=== PATIENT | male | born 1980 | race Caucasian/White ===

== ENCOUNTER 2023-06-01 15:31 | Outpatient (CLI) | payer OTHER ==
--- NOTE | 2023-06-01 15:58 | Sleep Patient Instructions ---
Sleep Center Visit Summary - Patient Visit Information Reason for Visit: Initial consult for evaluation of sleep disordered breathing and other sleep issues. - Patient Instructions Instructions Attached: Sleep Study, Sleep Clinic Visit, Sleep Study Home Monitor Additional Instructions: You will be completing a sleep study, either an in-lab polysomnography (PSG) or home sleep study (HST). You will follow-up in the sleep care office after the sleep study is completed to hear the results and talk about therapy, if needed. You will be called by our office staff to schedule this appointment, but you may contact us with any questions. - Clinic Information Contact: [facility] [address] [place] [address] [email or web address] T: [phone]
--- NOTE | 2023-06-01 16:07 | SLEEP CARE CONSULTATION ---
Information from patient questionnaire entered by Vj Ray. I have reviewed and concur with the information entered by Vj Ray. This document represents the service I personally performed and the decisions made by me, Ana Lipscomb ARNP. History of Present Illness Service Date and Time: 06/01/2023 1531 Reason for Visit: New patient Chief Complaint: reports: Unrefreshed sleep, Snoring, Excessive daytime sleepiness, Observed pauses in breathing, Fatigue, Frequent awakenings at night Date of Onset: 3YRS Usual bedtime: 10PM Time it takes to fall asleep: 1HR Snores at night: Yes Observed to quit breathing while asleep: Yes Sleeps alone due to snoring: No Number of times waking at night: 4-5 Reasons for waking at night: reports: Gasping for air (not recently), Other (UNKNOWN). denies: Choking, Snoring Toss, Turn, or Twitch while sleeping: Yes Recalls having dreams: No Usually gets out of bed at: 5AM; weekends 06-0700 Feels refreshed in the morning: No Morning headache: Yes (daily, last couple hours, they are constant during day sometimes) Sleepy or fatigued during the day: Yes Ever fallen asleep while driving: No Takes day naps: Yes (not often; 1-2 x a week for 30 mins) Dreams during day naps: No Prior sleep studies: No Additional HPI information: I had the pleasure of seeing MARGARITA HOLLIDAY today regarding the possibility of him having a sleep disorder. His current complaints are snoring, unrefreshed sleep, frequent night awakenings, excessive daytime sleepiness and observed pauses in breathing. He does not feel he gets enough sleep. He is tired through out the day. He takes an hour to fall asleep and will wake up 4-5 times through night for no apparent reason. 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 He does not wake up feeling rested. He has had times he woke up gasping for air but since he has lost about 30 pounds in the last year this has not happened. He does wake up daily with headaches. Some will last only 2 hours but other will be there all day. He states it is like a dull ache around his forehead. He states about 4-5 years ago he did a home sleep study that he wore on his wrist but he never heard anything back about the results. - Parasomnia Symptoms Ever been unable to move upon waking from sleep: No Walks in sleep: No Talks in sleep: No Ever acted out dreams in sleep: No Ever felt weak in the knees when startled or emotional: No Bothered by creepy, crawly, restless sensations in legs: No Problems with memory or concentration: Yes (concentration mostly) Subjective Initial Munden Sleepiness Scale score: 18 (06/01/23) Past Medical History Past Medical History: reports: Anxiety Social History The patient's occupation is a AM. Patient is and lives in [place]. Have you smoked in the past 12 months: No Years of smokin Quit date: 2017 Alcohol use: Yes Alcohol amount and frequency: 6 BEERS 1 WEEK Caffeine use: Yes Caffeine amount and frequency: 3 COFFEE EVERY DAY Family History Family history of sleep disordered breathing: Yes Family Hx Sleep Apnea: Mother: Snoring, Sleep apnea - Untreated, Father: Snoring, Sleep apnea - Untreated, Grandparent: Snoring, Sleep apnea - Untreated Allergies and Home Medications Known drug allergies: Yes (PEN, AMX) Drug allergies reviewed: Yes Home medication list reviewed: Yes (no daily medications) Review of Systems Weight loss over past 5 years: 30 Cardiovascular: denies: high blood pressure Gastrointestinal: denies: heartburn Neurological: reports: headaches. denies: head trauma Psychiatric: reports: anxiety Ear/Nose/Throat: reports: wisdom teeth removed. denies: injury to nose, tonsillectomy Musculoskeletal: reports: joint pain, back pain Immunologic: denies: allergies to food or environment Physical Exam Vital signs obtained and entered by: VJ Quinn MA Blood Pressure: 126/78 (LEFT ARM) Cuff size: regular Heart Rate: 58 O2 Saturation: 97 Height: 6 ft 1 in Weight: 200 lb 9.6 oz (with boots on) Body Mass Index: 26.4 BMI Classification: Overweight Neck circumference: 15.25 Mouth and throat: narrow oropharynx Soft palate: normal Hard palate: normal Uvula: normal Uvula visualization: 50% Mallampati Class II Tongue: enlarged in size with teeth zabala on lateral edges Tonsils: small Neck: normal w/o lymphadenopathy or thyromegaly Heart: regular rate and rhythm Lungs: clear bilaterally Impression and Plan 1. Suspected Obstructive Sleep Apnea-Hypopnea Syndrome, as suggested by a history of loud and irregular snoring, observed cessation of breath while a sleep, gasping or choking in sleep, morning headache, frequent awakening during the night, unrefreshed sleep, cognitive impairment, and excessive daytime sleepiness. Narrow oropharynx and obesity are common predisposing factors for obstructive sleep apnea-hypopnea syndrome. I recommend proceeding to polysomnography to confirm the diagnosis and to assess severity. If the patient has significant sleep disordered breathing, a manual CPAP titration study will also be performed to find the optimal treatment pressure. I informed the patient of what the sleep studies involve and after some discussion, obtained agreement to proceed. The pathophysiology of obstructive sleep apnea-hypopnea syndrome was discussed with the patient and health risks of cardiovascular and cerebrovascular disease if not treated. Risks of drowsy driving discussed in detail and patient advised to avoid long distance driving and to box puller at the first sign of drowsiness. Patient agreed to plan. * Schedule polysomnography +- manual CPAP titration study and return in 1-2 weeks after the study to discuss result and initiate therapy. * Avoid long distance driving or driving when feeling sleepy. * Avoid alcohol, sedative and muscle relaxant around bedtime. * Attempt to lose weight. * Review instructions provided by trained office staff on how to prepare for the sleep study. * Return for follow-up after sleep study completed. Counseling Topics: Weight loss health impact Visit Type: In Office Time Spent with Patient (minutes): 30 Provider Statement: I spent 100% of the Face to Face Visit with the patient with greater than 50% spent counseling the patient and coordination of care.
[2023-06-01 16:13] VITALS: BP 126/78
== END 2023-06-01 15:32 | disposition home or self-care (01) ==
LOC: SC 15:31
PROVIDERS: ATTEND Nurse Practitioner Family
DX: R06.83 Snoring (principal); G47.8 Other sleep disorders; R06.81 Apnea, not elsewhere classified; R51.9 Headache, unspecified; G47.10 Hypersomnia, unspecified; R53.83 Other fatigue; E66.3 Overweight; Z68.26 Body mass index [BMI] 26.0-26.9, adult; Z87.891 Personal history of nicotine dependence
CPT/HCPCS: 99203; 99212

== ENCOUNTER 2024-08-05 12:37 | Outpatient (CLI) | payer OTHER ==
--- NOTE | 2024-08-05 15:48 | MRI Report ---
Arthrogram Shoulder RT CLINICAL HISTORY: 43 years of age, Male, R SHOULDER JOINT DISORDER. Comparison: No priors available Technique: After the administration of 12 mL of dilute intra-articular Gadolinium contrast, oblique c oronal T1 and T2 spin echo with fat saturation, oblique sagittal T1 spin echo with and without fat sa turation, oblique sagittal T2 fast spin echo with fat saturation, axial T1 spin echo with fat saturat ion through the shoulder. Findings: Osseous acromial outlet: Moderate degenerative changes of the acromioclavicular joint. Type I acromio n. No os acromiale. No significant subacromial/subdeltoid bursitis. Rotator cuff muscles and tendons: Mild tendinosis of the supraspinatus and infraspinatus. Low-grade a rticular sided tear at the footprint of the junction of the supraspinatus and infraspinatus (6:10). T he teres minor is unremarkable. The subscapularis is intact. Muscles are intact without evidence of atrophy or edema. Labral and capsular structures: Superior labral tear. Biceps tendon and anchor: Mild tendinosis of the intra-articular biceps tendon. The intra-articular b iceps tendon is unremarkable. Osseous and cartilaginous structures: Mild subchondral cystic changes at the greater tuberosity, reac tive. No focal chondral defect of the glenohumeral articulation. Miscellaneous: No intra-articular bodies. The remaining muscles are normal in bulk without evidence o f atrophy or edema. IMPRESSION: 1.Moderate degenerative changes of the acromioclavicular joint. 2.Low-grade articular sided tear at the footprint of the junction of supraspinatus and infraspinatus. 3.Superior labral tear. Reviewed by: Sarai Mendez MD on 08/05/2024 3:46 PM PDT Approved by: Sarai Mendez MD on 08/05/2024 3:46 PM PDT Station ID: [id number]
--- NOTE | 2024-08-05 15:57 | MRI Report ---
Knee RT WO CLINICAL INFORMATION: 43 years of age, Male, RIGHT KNEE PAIN. COMPARISON: None Technique: Multisequence, multiplanar MRI of the right knee was performed without intravenous contras t. FINDINGS: Menisci: In the medial meniscus, there is a undersurface flap tear of the posterior horn, and a verti melo tear of the meniscus body. There is mild extrusion of the medial meniscus body with a meniscus fl ap extending into the inferior gutter. The lateral meniscus is unremarkable. Cruciate ligaments: The anterior and posterior cruciate ligaments are intact. MCL/LCL: The MCL is unremarkable. The biceps femoris tendon is unremarkable. The fibular collateral ligament is unremarkable. The iliotibial band is intact. The popliteus muscle and tendon also appear intact. Extensor mechanism: The quadricep tendon is unremarkable. The patella tendon is unremarkable. Patellofemoral joint: Alignment within the patellofemoral joint is normal. The patellofemoral ligame nts are intact. Cartilage and bone marrow signal within the patella and femoral trochlea are normal. Cartilage and bone: The cartilage of the medial and the lateral compartments is grossly well maintain ed. No acute fracture. Miscellaneous: No significant joint effusion. No popliteal cyst. No intra-articular bodies are ident ified. Normal muscle signal intensity and morphology. No vascular anomaly. Mild infrapatellar subcutaneous edema. IMPRESSION: 1.Tear of the medial meniscus with a meniscus flap. 2.No significant chondrosis. Reviewed by: Sarai Mendez MD on 08/05/2024 3:56 PM PDT Approved by: Sarai Mendez MD on 08/05/2024 3:56 PM PDT Station ID: [id number]
--- NOTE | 2024-08-05 16:11 | XRAY Report ---
PROCEDURE: Arthrogram Needle Placement INDICATIONS: RIGHT SHOULDER JOINT DISORDER CONTRAST: 0.1 mL Gadavist, 3 mL Omnipaque 240 FLUOROSCOPY TIME: 000.2 TECHNIQUE: The indications, alternatives, benefits, risks, and complications of the procedure were explained to the patient. Written informed consent was obtained and placed in the chart. The shoulder was examin ed fluoroscopically and a site for needle placement chosen for entry into the glenohumeral joint from an anterior approach. The skin was prepped and draped in the usual fashion, and 1% lidocaine infilt rated from skin down to joint capsule. A spinal needle was inserted into the glenohumeral joint, and a small amount of iodinated contrast media injected to confirm intra-articular placement of the need le tip. This was followed by approximately 12 mL dilute solution of a gadolinium containing MR contr ast agent. The needle was removed and a dressing was applied. The patient was given postprocedural instructions and sent to the MR suite for MR imaging. FINDINGS: A single fluoroscopic spot image demonstrates intra-articular location of injected iodinated contrast . IMPRESSION: Successful fluoroscopically guided administration of dilute Gadolinium solution into the shoulder beatriz romero for MR arthrogram. Reviewed by: Cristopher Mireles MD on 08/05/2024 4:10 PM PDT Approved by: Cristopher Mireles MD on 08/05/2024 4:10 PM PDT Station ID: [id number]
== END 2024-08-05 12:38 | disposition home or self-care (01) ==
LOC: DI 12:37
DX: S83.241A Other tear of medial meniscus, current injury, right knee, initial encounter (principal); M19.011 Primary osteoarthritis, right shoulder; M75.101 Unspecified rotator cuff tear or rupture of right shoulder, not specified as traumatic; S43.431A Superior glenoid labrum lesion of right shoulder, initial encounter
CPT/HCPCS: 23350; 73222; 73721; 77002; A9575; Q9966